=== PATIENT | female | born 1965 | race Hispanic/Latino ===

== ENCOUNTER 2018-12-20 08:08 | Outpatient (CLI) | payer OTHER, MEDICARE ==
--- NOTE | 2018-12-20 09:34 | MRI ---
MRI LEFT SHOULDER PERFORMED WITHOUT CONTRAST ENHANCEMENT: HISTORY: Left shoulder pain. FINDINGS: There is mild arthrosis of the AC joint. The supraspinatus as well as infraspinatus tendons are intact. The subscapularis muscle and tendon a re normal in appearance, and the biceps tendon is normal in position, within the bicipital groove. The biceps labral complex is normal in appearance. No evidence of any SLAP type lesion. The inferior glenohumeral ligament and ligament labral complex is unremarkable. No significant rotator cuff atrophy. IMPRESSION: No evidence of rotator cuff or labral injury. Mild arthrosis of the AC joint. POS: [id number]
--- NOTE | 2018-12-20 09:39 | MRI ---
MRI RIGHT SHOULDER PERFORMED WITHOUT CONTRAST ENHANCEMENT: HISTORY: Bilateral shoulder pain. Right shoulder surgery 13 years ago. FINDINGS: There is some mild arthrosis of the AC joint with a small cyst arising along the superior aspect of t he AC joint. The supraspinatus as well as infraspinatus tendons appear intact. There are some minimal subchondral cystic changes along the greater tuberosity, at the insertion of the infraspinatus. There is some f luid within the subacromial-subdeltoid recess. The bicipital labral complex appears unremarkable. I do not appreciate any SLAP type lesion. The inferior glenohumeral ligament and the ligament labral complex appears normal. No significant rotator cuff atrophy. There are minimal atrophic changes associated with the infraspi natus muscle. IMPRESSION: 1. No evidence of rotator cuff or labral injury. 2. Mild arthrosis of the acromioclavicular joint. 3. Some fluid is seen within the subacromial-subdeltoid recess, suggesting mild bursitis. POS: [id number]
== END 2018-12-20 08:09 | disposition home or self-care (01) ==
LOC: BICMRI 08:08
PROVIDERS: ATTEND Internal Medicine Rheumatology
DX: M75.111 Incomplete rotator cuff tear or rupture of right shoulder, not specified as traumatic (principal); M75.112 Incomplete rotator cuff tear or rupture of left shoulder, not specified as traumatic; M19.012 Primary osteoarthritis, left shoulder; M19.011 Primary osteoarthritis, right shoulder

== ENCOUNTER 2021-11-30 14:28 | Outpatient (CLI) | payer MEDICARE, BC | END 2021-11-30 14:29 | disposition home or self-care (01) | LOC: BICMAMMO 14:28 | PROVIDERS: ATTEND Internal Medicine Rheumatology | DX: M81.0 Age-related osteoporosis without current pathological fracture (principal); M85.851 Other specified disorders of bone density and structure, right thigh; M85.852 Other specified disorders of bone density and structure, left thigh | CPT/HCPCS: 77080 ==

== ENCOUNTER 2022-06-02 15:55 | Emergency (ER) | payer MEDICARE, BC | END 2022-06-02 16:26 | disposition home or self-care (01) | LOC: ERS 15:55 | DX: U07.1 COVID-19 (principal) | CPT/HCPCS: 99283; U0003; U0005 ==